=== PATIENT | male | born 1995 | race Two or more races ===

== ENCOUNTER 2019-05-30 14:08 | Emergency (ER) | payer OTHER ==
[~2019-05-30] VITALS: Ht 170.2 cm; Wt 77.1 kg
--- NOTE | 2019-05-30 14:15 | NUR ---
ED Nurse Note: Called patient, not in waiting room.
[2019-05-30 15:00] VITALS: BP 140/78
[2019-05-30] MEDS ORDERED: HYDROcodone/Acetamin 5/325 tab ORAL ONE (15:00)
--- NOTE | 2019-05-30 15:00 | NUR ---
ED Nurse Note: pt with lac to left index finger through nailbed. oozing small amt blood. pt states not significant amt of pain. relates happened at work with a table saw
--- NOTE | 2019-05-30 15:02 | Diagnostic Imaging Report ---
Indication: pain in finger. trauma Findings: 3 views of the left second finger were obtained. Portion of the second distal phalangeal tuft is absent presumably due to the trauma. There is irregular adjacent soft tissue. IMPRESSION: Truncation defect involving part of the second distal phalangeal tuft
--- NOTE | 2019-05-30 15:15 | NUR ---
ED Nurse Note: pt soaking finger awaiting laceration repair.
--- NOTE | 2019-05-30 15:31 | Emergency Room Report ---
History of Present Illness General Chief Complaint: Laceration Source: Patient Present Illness HPI 23-year-old male with no significant past medical history here complaining of a laceration left index finger that happened at work. Patient reports that he was using a table saw osteotomy cut his finger. Finger still intact. However deep laceration noted with scant amount of bleeding. Patient reports that sensation and no motor deficits. Rating the pain 10 out of 10 with radiation to the left hand denying any tingling and numbness. Patient is up-to-date with his tetanus shot. Denies other injuries, chest pain, shortness of breath, palpitation, abdominal pain, nausea vomiting. Patient denies having any bleeding disorders. Is not on any medications daily basis. Allergies: Coded Allergies: No Known Allergies (Unverified , 05/30/19) Patient History Past Medical History: see triage record Past Surgical History: unable to obtain Pertinent Family History: none Immunizations: UTD Reviewed Nursing Documentation: PMH: Agreed; PSxH: Agreed Nursing Documentation-PMH Past Medical History: No Stated History Review of Systems All Other Systems: negative except mentioned in HPI Physical Exam Vital Signs Date Time Temp Pulse Resp B/P (MAP) Pulse Ox O2 Delivery O2 Flow Rate FiO2 05/30/19 14:22 98.4 80 16 140/78 (98) 96 Room Air Sp02 EP Interpretation: reviewed, normal General Appearance: normal inspection, well appearing, no apparent distress, alert, GCS 15 Head: normocephalic, atraumatic Eyes: bilateral eye normal inspection, bilateral eye PERRL ENT: normal ENT inspection, hearing grossly normal, normal pharynx Neck: normal inspection, full range of motion, supple Respiratory: normal inspection, chest non-tender, lungs clear, no rhonchi, no wheezing Cardiovascular #1: normal inspection, regular rate, rhythm, no gallop, no murmur Cardiovascular #2: 2+ radial (R), 2+ radial (L) Gastrointestinal: normal inspection, soft, no mass Rectal: deferred Genitourinary: no CVA tenderness Musculoskeletal: other - deep lac left index finger Neurologic: normal inspection, alert, oriented x3, responsive, 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, motor strength/tone normal Psychiatric: normal inspection, judgement/insight normal Skin: laceration - deep lac left index finger Lymphatic: normal inspection, no adenopathy Procedures Laceration/Wound Repair Laceration/Wound Repair : Consent: Verbal Wound Location: upper extremity Wound's Depth, Shape: into muscle Wound Length (cm): 1 Wound Explored: contaminated Betadine Prep?: Yes Anesthesia: 1% Lidocaine Volume Anesthetic (ccs): 10 Wound Debrided: moderate Wound Repaired With: sutures Suture Size/Type: 3:0, proline Number of Sutures: 7 Layer Closure?: Yes Sterile Dressing Applied?: Yes Splint Applied?: Yes Sling Applied?: No Patient Tolerated: Well Complications: None Medical Decision Making PA Attestation All my diagnosis and treatment plans were reviewed ad discussed with my supervising physician Dr. Tobias Diagnostic Impression: Primary Impression: Deep laceration of finger Additional Impression: Fracture, finger ER Course 23-year-old male with no significant past medical history here complaining of a laceration left index finger that happened at work. Patient reports that he was using a table saw osteotomy cut his finger. Finger still intact. However deep laceration noted with scant amount of bleeding. Patient reports that sensation and no motor deficits. Rating the pain 10 out of 10 with radiation to the left hand denying any tingling and numbness. Patient is up-to-date with his tetanus shot. Denies other injuries, chest pain, shortness of breath, palpitation, abdominal pain, nausea vomiting. Patient denies having any bleeding disorders. Is not on any medications daily basis. Ddx considered but are not limited to : Superficial laceration, deep laceration , tendon involvement with laceration, laceration with foreign body Vital signs: are WNL, pt. is afebrile H&PE are most consistent with: Deep laceration of finger with avulsion fracture ORDERS: Finger x-ray, [place], Ancef, Keflex, Tylenol 3, ibuprofen ED INTERVENTIONS: Laceration repairs, and splinting of the finger. DISCHARGE: At this time pt. is stable for d/c to home. Will provide printed patient care instructions, and any necessary prescriptions. Care plan and follow up instructions have been discussed with the patient prior to discharge. They communicated with Dr. Kahlil Reilly hand specialist and he directed me to repair the laceration and have the patient follow-up with him tomorrow. Patient stable at time of discharge. Splint was ordered, extremity was vascularly and neurovascularly intact after splint was applied. pt advised to follow up with pcp and further imaging may be needed. Other X-Ray Diagnostic Results Other X-Ray Diagnostic Results : X-Ray ordered: finger # of Views/Limited Vs Complete: 3 View Indication: Pain EP Interpretation: Yes MAR Xray: Interpretation reviewed, by supervising MD Interpretation: other - Avulsion fracture of left index finger secondary to laceration Impression: Other - Avulsion fracture of left index finger secondary to laceration Electronically Signed by: James Rizvi PA-C Last Vital Signs Date Time Temp Pulse Resp B/P (MAP) Pulse Ox O2 Delivery O2 Flow Rate FiO2 05/30/19 15:00 78 16 140/78 99 Room Air 05/30/19 14:22 98.4 Disposition: HOME, SELF-CARE Condition: Stable Scripts Ibuprofen (Ibu) 800 Mg Tablet 800 MG PO TID, #30 TAB Prov: James Prasad 05/30/19 Acetaminophen With Codeine (T#3) (TYLENOL #3 TAB*) Y Tab 1 TAB ORAL Q8HR PRN for For Pain for 3 Days, #10 TAB Prov: James Prasad 05/30/19 Cephalexin* (KEFLEX*) 500 Mg Capsule 500 MG ORAL EVERY 6 HOURS for 7 Days, #28 CAP Prov: James Prasad 05/30/19 Referrals: NOT CHOSEN IPA/,REFERRING (PCP) Patient Instructions: Finger Fracture, [id number], Laceration Care, Adult Additional Instructions: Take medication as directed follow-up with James Andrade May 30, 2019 15:30
[2019-05-30] MEDS ORDERED: CEPHALEXIN500 MG ORAL (15:33)
[2019-05-30] MEDS ORDERED: ACETAMINOPHEN-1 EAC1 ORAL (15:33)
[2019-05-30] MEDS ORDERED: IBU800 MG PO (15:33)
[2019-05-30] MEDS ORDERED: Bacitracin Oint UD TOPIC ONE (16:15)
--- NOTE | 2019-05-30 16:26 | NUR ---
ED Nurse Note: pt with finger splint and dressing applied by medical biller good cms distally. pt with f/u plan given .pt states good understanding.
[2019-05-30 16:29] VITALS: BP 140/78
== END 2019-05-30 16:30 | disposition home or self-care (01) ==
LOC: EMR 14:49
DX: S61.211A Laceration without foreign body of left index finger without damage to nail, initial encounter (principal); S62.631A Displaced fracture of distal phalanx of left index finger, initial encounter for closed fracture; W27.0XXA Contact with workbench tool, initial encounter; Y93.H3 Activity, building and construction; Y92.69 Other specified industrial and construction area as the place of occurrence of the external cause; Y99.0 Civilian activity done for income or pay
CPT/HCPCS: 12041; 73140; 99283; J0690